=== PATIENT | male | born 1995 | race Caucasian/White ===

== ENCOUNTER 2019-07-25 22:10 | Emergency (ER) | payer BC, OTHER ==
[~2019-07-25] VITALS: Ht 185.4 cm; Wt 81.7 kg
[2019-07-26] MEDS ORDERED: TETANUS, DIPHTHERIA, PERTUSSIS VAC/PF 0.5ML (>7YR OLD) IM ONE (01:15)
[2019-07-26] MEDS ORDERED: LIDOCAINE 1%/EPI 1:100,000 10 ML VIAL IJ ONE (01:15)
[2019-07-26] MEDS ORDERED: BACITRACIN ZINC OINT UDPKT TOP ONE (01:15)
[2019-07-26 03:21] VITALS: BP 126/89
== END 2019-07-26 03:24 | disposition home or self-care (01) ==
LOC: ER 22:10
DX: S01.511A Laceration without foreign body of lip, initial encounter (principal); W22.8XXA Striking against or struck by other objects, initial encounter; Y93.89 Activity, other specified; Y92.89 Other specified places as the place of occurrence of the external cause; Y99.8 Other external cause status
CPT/HCPCS: 12013; 90471; 90715; 99283; J3490; Z7610

== ENCOUNTER 2020-09-15 11:45 | Emergency (ER) | payer BC, OTHER ==
[~2020-09-15] VITALS: Ht 185.4 cm; Wt 82.0 kg
[2020-09-15] MEDS ORDERED: IBUPROFEN 600MG TABLET PO ONE (12:45)
[2020-09-15 12:50] VITALS: BP 122/76
== END 2020-09-15 12:55 | disposition home or self-care (01) ==
LOC: ER 11:45
DX: L03.114 Cellulitis of left upper limb (principal); M67.432 Ganglion, left wrist
CPT/HCPCS: 99282